=== PATIENT | female | born 1960 | race Caucasian/White ===

== ENCOUNTER → 2016-07-09 | Outpatient (CLI) | payer MEDICAID ==
[~2016-07-09] MED LIST: ALPR-475 PO; ATOR10TA9 PO; AZEL137S4 NAS; BUPR150T6 PO; BUSP15TA PO; CALC1CAP8 PO; CARB100O2 PO; CETI5TAB3 PO; CHOL500014 PO; CYCL-259 PO; DICY20TA3 PO; DIPH25CA61 PO; DOCU50LI24 PO; ESCI20TA PO; FLEXERAL; FLUT10SP INH; HYDR25TA11 PO; HYDR25TA6 PO; LAMO25TA PO; LISI-167 PO; NALO25TA PO; OMEP-110 PO; OMEP40CA6 PO; ONDA4TAB13 PO; OXYC-223 PO; OXYC-302 PO; POLY17PO3 PO; PRAZ1CAP2 PO; PREG50CA PO; PROM25TA10 PO; SUMA100T4 PO; SUMA20SP2 NS; ZOLP-413 PO; [UNRECOGNIZED DRUG - CODE] PO
== END | disposition home or self-care (01) ==
LOC: RAD 13:37
PROVIDERS: ATTEND Neurological Surgery
DX: M41.86 Other forms of scoliosis, lumbar region (principal); S32.018A Other fracture of first lumbar vertebra, initial encounter for closed fracture; M43.23 Fusion of spine, cervicothoracic region; Z98.890 Other specified postprocedural states; X58.XXXA Exposure to other specified factors, initial encounter; Y93.89 Activity, other specified; Y92.89 Other specified places as the place of occurrence of the external cause; Y99.8 Other external cause status
CPT/HCPCS: 72082

== ENCOUNTER → 2016-08-05 | Outpatient (CLI) | payer MEDICAID | END | disposition home or self-care (01) | LOC: CARD 11:30 | PROVIDERS: ATTEND Neurological Surgery | DX: M41.9 Scoliosis, unspecified (principal) | CPT/HCPCS: 94010; 94726; 94729 ==

== ENCOUNTER → 2016-09-11 | Outpatient (CLI) | payer MEDICARE | END | disposition home or self-care (01) | LOC: RAD 10:50 | PROVIDERS: ATTEND Neurological Surgery | DX: M43.13 Spondylolisthesis, cervicothoracic region (principal); M50.33 Other cervical disc degeneration, cervicothoracic region; M41.84 Other forms of scoliosis, thoracic region | CPT/HCPCS: 72040; 72072 ==

== ENCOUNTER → 2016-11-24 | Outpatient (CLI) | payer MEDICARE | END | disposition home or self-care (01) | LOC: RAD 10:47 | PROVIDERS: ATTEND Neurological Surgery | DX: M41.86 Other forms of scoliosis, lumbar region (principal); M43.13 Spondylolisthesis, cervicothoracic region; M51.34 Other intervertebral disc degeneration, thoracic region; M51.36 Other intervertebral disc degeneration, lumbar region; G89.29 Other chronic pain; Z98.1 Arthrodesis status; Z98.890 Other specified postprocedural states | CPT/HCPCS: 72050; 72082 ==

== ENCOUNTER → 2017-05-14 | Outpatient (CLI) | payer MEDICARE ==
[~2017-05-14] MED LIST changes: +CARB100O7 PO; -CHOL500014 PO; +CHOL500045 PO; -OXYC-223 PO; +OXYC-306 PO; -[UNRECOGNIZED DRUG - CODE] PO
== END | disposition home or self-care (01) ==
LOC: RAD 13:35
PROVIDERS: ATTEND Internal Medicine
DX: M86.20 Subacute osteomyelitis, unspecified site (principal)
CPT/HCPCS: 36569; 76937; 77001; C1751

== ENCOUNTER → 2017-05-27 | Outpatient (CLI) | payer MEDICARE | END | disposition home or self-care (01) | LOC: RAD 09:31 | PROVIDERS: ATTEND Nurse Practitioner Family | DX: M40.294 Other kyphosis, thoracic region (principal); Z98.890 Other specified postprocedural states | CPT/HCPCS: 72082 ==

== ENCOUNTER → 2017-06-09 | Outpatient (CLI) | payer MEDICARE | END | disposition home or self-care (01) | LOC: RAD 13:55 | PROVIDERS: ATTEND Neurological Surgery | DX: M48.54XA Collapsed vertebra, not elsewhere classified, thoracic region, initial encounter for fracture (principal); M51.34 Other intervertebral disc degeneration, thoracic region; M48.04 Spinal stenosis, thoracic region; Z98.890 Other specified postprocedural states | CPT/HCPCS: 72128; 72146 ==

== ENCOUNTER 2017-06-30 16:42 | Inpatient (IN) | payer MEDICARE ==
[~2017-06-30] VITALS: Ht 160 cm; Wt 60.6 kg
[2017-06-30] MEDS ORDERED: SODIUM CHLORIDE FLUSH 10ML SYR IVF ONE (17:00)
[2017-06-30] MEDS ORDERED: SODIUM CHLORIDE 0.9% 1,000ML IVBOLUS ONE (17:00)
[2017-06-30] MEDS ORDERED: ESCI20TA PO (17:11)
[2017-06-30] MEDS ORDERED: PRAV40TA2 PO (17:12)
[2017-06-30] MEDS ORDERED: SENN8.6T5 PO (17:14)
[2017-06-30] MEDS ORDERED: FERR325T18 PO (17:15)
[2017-06-30] MEDS ORDERED: HYDR-3245 PO (17:16)
[2017-06-30] MEDS ORDERED: ZOLP-413 PO (17:18)
[2017-06-30] MEDS ORDERED: ASPI-650 PO (17:18)
[2017-06-30] MEDS ORDERED: RIZA10TA5 PO (17:19)
[2017-06-30] MEDS ORDERED: PROM25SU34 RC (17:20)
[2017-06-30] MEDS ORDERED: ALBU0.63 NEB (17:21)
[2017-06-30] MEDS ORDERED: CHOL100011 PO (17:22)
[2017-06-30] MEDS ORDERED: CALC200T3 PO (17:22)
[2017-06-30] MEDS ORDERED: CYAN100072 PO (17:23)
[2017-06-30] MEDS ORDERED: VITA400C9 PO (17:24)
[2017-06-30] MEDS ORDERED: CIPR500T3 PO (17:30)
[2017-06-30 17:39] LABS: BASOPHILS # (AUTO) 0.04 x10^3/uL (0-0.1); BASOPHILS % (AUTO) 0 % (0-1); EOSINOPHILS # (AUTO) 0.34 x10^3/uL (0-0.4); EOSINOPHILS % (AUTO) 3 % (1-7); LYMPHOCYTES # (AUTO) 2.01 x10^3/uL (1-3.4); LYMPHOCYTES % (AUTO) 18 % (22-44); MD NO; MEAN CORPUSCULAR HEMOGLOBIN 27.5 pg (27.0-34.8); MEAN CORPUSCULAR HGB CONC 33.1 g/dL (32.4-35.8); MEAN CORPUSCULAR VOLUME 83.1 fL (80-100); MEAN PLATELET VOLUME 7.6 fL (7.4-10.4); MONOCYTES # (AUTO) 0.52 x10^3/uL (0.2-0.8); MONOCYTES % (AUTO) 5 % (2-9); NEUTROPHILS # (AUTO) 7.99 x10^3/uL (1.8-6.8); NEUTROPHILS % (AUTO) 73 % (42-75); PLATELET COUNT 306 x10^3/uL (130-400); RED BLOOD COUNT 4.23 x10^6/uL (3.82-5.3); RED CELL DISTRIBUTION WIDTH 17.8 % (9.6-15.2)
[2017-06-30 17:50] LABS: ALBUMIN 3.5 g/dL (3.4-5.0); ANION GAP 9 mmol/L (5-15); CALCIUM 8.8 mg/dL (8.5-10.1); CHLORIDE 101 mmol/L (98-107)
[2017-06-30 17:53] LABS: ALANINE AMINOTRANSFERASE 17 U/L (12-78); ALKALINE PHOSPHATASE 115 U/L (45-117); BILIRUBIN,TOTAL 0.7 mg/dL (0.2-1.0); CREATININE 1.52 mg/dL (0.55-1.02); TOTAL PROTEIN 7.9 g/dL (6.4-8.2)
[2017-06-30 18:09] LABS: TROPONIN I < 0.015 ng/mL (0.000-0.045)
[2017-06-30 18:54] LABS: MICROSCOPIC NOT IND
[2017-06-30 19:03] LABS: CULTURE INDICATED? NO
[2017-06-30] MEDS ORDERED: SUMATRIPTAN 100 MG TABLET PO PRN (21:30)
[2017-06-30] MEDS ORDERED: LAMOTRIGINE 25 MG TABLET PO SCH (21:30)
[2017-06-30] MEDS ORDERED: ONDANSETRON 2MG/ML, 2ML IVPush PRN (21:30)
[2017-06-30] MEDS ORDERED: METHOCARBAMOL 500 MG TABLET PO PRN (21:30)
[2017-06-30] MEDS ORDERED: PRAZOSIN 1 MG CAPSULE PO SCH (21:30)
[2017-06-30] MEDS ORDERED: BISACODYL 10 MG SUPP PR PRN (21:30)
[2017-06-30] MEDS ORDERED: POLYETHYLENE GLYCOL 17 GM PACKET PO PRN (21:30)
[2017-06-30 22:15] VITALS: BP 129/85
[2017-06-30] MEDS: HEPARIN 5,000 UNITS/ML, 1ML SQ SCH (22:42)
[2017-06-30] MEDS: PRAVASTATIN 40 MG TABLET PO SCH (22:42)
[2017-06-30] MEDS: OMEPRAZOLE 20 MG CAPSULE.DR PO SCH (22:42)
[2017-06-30] MEDS: PREGABALIN 100 MG CAPSULE PO SCH (22:42)
[2017-06-30] MEDS: SODIUM CHLORIDE 0.9% 1,000 ML IV SCH (22:43)
[2017-06-30 23:08] LABS: FREE T4 (FREE THYROXINE) 1.17 ng/dL (0.76-1.46); THYROID STIMULATING HORMONE 0.549 mIU/L (0.358-3.740)
[2017-07-01] VITALS (8 sets, daily range): BP systolic 72–141; BP diastolic 46–91
[2017-07-01] MEDS: OXYcodone IR 5MG TABLET PO PRN ×2 (00:31→20:50)
[2017-07-01 05:18] LABS: BASOPHILS # (AUTO) 0.02 x10^3/uL (0-0.1); BASOPHILS % (AUTO) 0 % (0-1); EOSINOPHILS # (AUTO) 0.25 x10^3/uL (0-0.4); EOSINOPHILS % (AUTO) 4 % (1-7); LYMPHOCYTES # (AUTO) 2.38 x10^3/uL (1-3.4); LYMPHOCYTES % (AUTO) 38 % (22-44); MD NO; MEAN CORPUSCULAR HEMOGLOBIN 27.6 pg (27.0-34.8); MEAN CORPUSCULAR HGB CONC 33.3 g/dL (32.4-35.8); MEAN CORPUSCULAR VOLUME 82.8 fL (80-100); MEAN PLATELET VOLUME 7.4 fL (7.4-10.4); MONOCYTES # (AUTO) 0.35 x10^3/uL (0.2-0.8); MONOCYTES % (AUTO) 6 % (2-9); NEUTROPHILS # (AUTO) 3.32 x10^3/uL (1.8-6.8); NEUTROPHILS % (AUTO) 53 % (42-75); PLATELET COUNT 277 x10^3/uL (130-400); RED BLOOD COUNT 3.45 x10^6/uL (3.82-5.3)
[2017-07-01 05:27] LABS: ALBUMIN 2.9 g/dL (3.4-5.0); ANION GAP 6 mmol/L (5-15); CALCIUM 8.4 mg/dL (8.5-10.1); CHLORIDE 109 mmol/L (98-107)
[2017-07-01 05:32] LABS: ALANINE AMINOTRANSFERASE 12 U/L (12-78); ALKALINE PHOSPHATASE 94 U/L (45-117); BILIRUBIN,TOTAL 0.6 mg/dL (0.2-1.0); CREATININE 0.83 mg/dL (0.55-1.02); TOTAL PROTEIN 6.8 g/dL (6.4-8.2)
[2017-07-01] MEDS: SODIUM CHLORIDE 0.9% 1,000 ML IV SCH ×2 (08:54→20:50)
[2017-07-01] MEDS: OMEPRAZOLE 20 MG CAPSULE.DR PO SCH ×2 (08:54→20:50)
[2017-07-01] MEDS: HEPARIN 5,000 UNITS/ML, 1ML SQ SCH ×2 (08:54→17:00)
[2017-07-01] MEDS: ASPIRIN 325 MG TABLET EC PO SCH (08:54)
[2017-07-01] MEDS: PREGABALIN 100 MG CAPSULE PO SCH ×2 (08:54→20:50)
[2017-07-01] MEDS: SENNA/DOCUSATE TABLET PO SCH (08:55)
[2017-07-01] MEDS: CHOLECALCIFEROL 1,000 UNIT TABLET PO SCH (08:55)
[2017-07-01] MEDS: TEMPLATE NON-FORMULARY MED. (Escitalopram Oxalate** 20 MG) HOMEMEDPO SCH (08:58)
[2017-07-01] MEDS: CYANOCOBALAMIN 1,000 MCG TABLET PO SCH (09:10)
[2017-07-01] MEDS ORDERED: SODIUM CHLORIDE 0.9%, 500ML IVBOLUS ONE (09:30)
[2017-07-01 13:30] LABS: HCT (SEDRATE) 33.4 % (34.6-47.8)
[2017-07-01] MEDS: PRAVASTATIN 40 MG TABLET PO SCH (20:50)
[2017-07-01] MEDS ORDERED: PRAZOSIN 1 MG CAPSULE PO SCH (21:00)
[2017-07-02] MEDS: HEPARIN 5,000 UNITS/ML, 1ML SQ SCH ×2 (01:19→09:31)
[2017-07-02 03:59] VITALS: BP_SYST 132; BP_SYST 146; BP_DIAS 110; BP_DIAS 88; BP_DIAS 92
[2017-07-02] MEDS: SODIUM CHLORIDE 0.9% 1,000 ML IV SCH (05:00)
[2017-07-02 05:38] LABS: BASOPHILS # (AUTO) 0.02 x10^3/uL (0-0.1); BASOPHILS % (AUTO) 1 % (0-1); EOSINOPHILS # (AUTO) 0.23 x10^3/uL (0-0.4); EOSINOPHILS % (AUTO) 5 % (1-7); LYMPHOCYTES # (AUTO) 2.16 x10^3/uL (1-3.4); LYMPHOCYTES % (AUTO) 50 % (22-44); MD NO; MEAN CORPUSCULAR HEMOGLOBIN 28.1 pg (27.0-34.8); MEAN CORPUSCULAR HGB CONC 33.6 g/dL (32.4-35.8); MEAN CORPUSCULAR VOLUME 83.7 fL (80-100); MEAN PLATELET VOLUME 7.7 fL (7.4-10.4); MONOCYTES # (AUTO) 0.25 x10^3/uL (0.2-0.8); MONOCYTES % (AUTO) 6 % (2-9); NEUTROPHILS # (AUTO) 1.63 x10^3/uL (1.8-6.8); NEUTROPHILS % (AUTO) 38 % (42-75); PLATELET COUNT 327 x10^3/uL (130-400); RED BLOOD COUNT 3.82 x10^6/uL (3.82-5.3); RED CELL DISTRIBUTION WIDTH 17.1 % (9.6-15.2)
[2017-07-02 05:52] LABS: ALANINE AMINOTRANSFERASE 13 U/L (12-78); ALBUMIN 3.1 g/dL (3.4-5.0); ANION GAP 7 mmol/L (5-15); CALCIUM 8.6 mg/dL (8.5-10.1); CHLORIDE 112 mmol/L (98-107); CREATININE 0.56 mg/dL (0.55-1.02)
[2017-07-02 05:54] LABS: ALKALINE PHOSPHATASE 96 U/L (45-117); BILIRUBIN,TOTAL 0.5 mg/dL (0.2-1.0); TOTAL PROTEIN 7.1 g/dL (6.4-8.2)
[2017-07-02 08:49] VITALS: BP 138/87
[2017-07-02] MEDS: TEMPLATE NON-FORMULARY MED. (Escitalopram Oxalate** 20 MG) HOMEMEDPO SCH (09:00)
[2017-07-02] MEDS: OMEPRAZOLE 20 MG CAPSULE.DR PO SCH (09:30)
[2017-07-02] MEDS: PREGABALIN 100 MG CAPSULE PO SCH (09:31)
[2017-07-02] MEDS: CYANOCOBALAMIN 1,000 MCG TABLET PO SCH (09:35)
[2017-07-02] MEDS: ASPIRIN 325 MG TABLET EC PO SCH (09:35)
[2017-07-02] MEDS: SENNA/DOCUSATE TABLET PO SCH (09:35)
[2017-07-02] MEDS: CHOLECALCIFEROL 1,000 UNIT TABLET PO SCH (09:35)
[2017-07-02 12:42] VITALS: BP 139/87
[2017-07-02] MEDS: OXYcodone IR 5MG TABLET PO PRN (12:52)
== END 2017-07-02 14:46 | disposition home or self-care (01) | DRG 91 ==
LOC: ED 20:00 → 3NE 20:16 → 4EST 21:59 → DCLOUNGE 07-02 14:34
PROVIDERS: ADMIT Internal Medicine; ATTEND Internal Medicine
DX: G92 Toxic encephalopathy (principal); N17.0 Acute kidney failure with tubular necrosis; E87.2 Acidosis; E87.1 Hypo-osmolality and hyponatremia; F11.20 Opioid dependence, uncomplicated; M41.9 Scoliosis, unspecified; R47.01 Aphasia; W18.11XA Fall from or off toilet without subsequent striking against object, initial encounter; E78.5 Hyperlipidemia, unspecified; F43.10 Post-traumatic stress disorder, unspecified; F32.9 Major depressive disorder, single episode, unspecified; G43.909 Migraine, unspecified, not intractable, without status migrainosus; K21.9 Gastro-esophageal reflux disease without esophagitis; I10 Essential (primary) hypertension; K58.9 Irritable bowel syndrome, unspecified; I51.89 Other ill-defined heart diseases; Z90.710 Acquired absence of both cervix and uterus; Z96.653 Presence of artificial knee joint, bilateral; Z81.1 Family history of alcohol abuse and dependence; Z82.3 Family history of stroke; Z88.2 Allergy status to sulfonamides; Z88.8 Allergy status to other drugs, medicaments and biological substances; Z88.1 Allergy status to other antibiotic agents; Z91.041 Radiographic dye allergy status; R00.0 Tachycardia, unspecified; T50.905A Adverse effect of unspecified drugs, medicaments and biological substances, initial encounter; Y93.89 Activity, other specified; Y92.89 Other specified places as the place of occurrence of the external cause; Y99.8 Other external cause status; Z98.1 Arthrodesis status; G47.00 Insomnia, unspecified; S39.012A Strain of muscle, fascia and tendon of lower back, initial encounter; S16.1XXA Strain of muscle, fascia and tendon at neck level, initial encounter; S00.03XA Contusion of scalp, initial encounter; G89.29 Other chronic pain
CPT/HCPCS: 36415; 70450; 70551; 72110; 72125; 80053; 80175; 80307; 81003; 82140; 82533; 82607; 83605; 84145; 84439; 84443; 84484; 85025; 85651; 86140; 93005; 96360; 96361; J1644; 92523-GN; J7030; J7040

== ENCOUNTER 2017-09-04 07:52 | Inpatient (IN) | payer MEDICARE ==
[~2017-09-04] VITALS: Ht 162.6 cm; Wt 63.4 kg
[~2017-09-04 07:52] MED LIST changes: +ALBU0.63 NEB; +ALPR1TAB2 PO; +ASPI-650 PO; +BACITRACIN 50,000 UNIT ONE; +BUPIVACAINE/PF 0.5% ONE; +BUSP30TA PO; +CALC200T3 PO; +CHOL100011 PO; +CIPR500T3 PO; +CYAN100072 PO; +EPINEPHRINE 1 MG/ML, 1ML ONE; +FERR325T18 PO; +HYDR-3245 PO; +LAMO150T2 PO; +OXYC15TA PO; +PRAV40TA2 PO; +PREG75CA PO; +PROM25SU34 RC; +RIZA10TA5 PO; +SENN8.6T5 PO; +THROMBIN 20,000 UNIT VIAL TP ONE; +VANCOMYCIN 1,000 MG ONE; +VITA400C9 PO
[2017-09-04] MEDS ORDERED: MIDAZOLAM 1 MG/ML, 2ML ONE (08:24)
[2017-09-04] MEDS ORDERED: FENTANYL PF 250 MCG/5ML ONE (08:24)
[2017-09-04] MEDS ORDERED: ROCURONIUM 10MG/ML,5ML ONE (08:25)
[2017-09-04] MEDS ORDERED: DEXAMETHASONE 4 MG/ML, 1ML ONE ×2 (08:26)
[2017-09-04] MEDS ORDERED: SUCCINYLCHOLINE 20 MG/ML, 10ML ONE (08:26)
[2017-09-04] MEDS ORDERED: CEFAZOLIN 1,000 MG ONE ×4 (08:27→13:08)
[2017-09-04] MEDS ORDERED: PROPOFOL 10 MG/ML, 20ML ONE (08:27)
[2017-09-04] MEDS ORDERED: SODIUM CHLORIDE 0.9% PF 10ML ONE (08:27)
[2017-09-04] MEDS ORDERED: PROPOFOL 50 ML ONE ×3 (08:30→12:57)
[2017-09-04 08:32] VITALS: BP 79/57
[2017-09-04] MEDS ORDERED: LACTATED RINGERS 1,000 ML IV SCH (08:38)
[2017-09-04] MEDS ORDERED: GABAPENTIN 300 MG CAPSULE PO ONE (09:00)
[2017-09-04] MEDS ORDERED: ONDANSETRON ODT 8 MG PO ONE (09:00)
[2017-09-04] MEDS ORDERED: ACETAMINOPHEN 500 MG TABLET PO ONE (09:00)
[2017-09-04] MEDS ORDERED: LACTATED RINGERS 500 ML IVBOLUS ONE (09:00)
[2017-09-04] MEDS ORDERED: GABAPENTIN 300 MG CAPSULE ONE (09:10)
[2017-09-04] MEDS ORDERED: ONDANSETRON ODT 8 MG ONE (09:10)
[2017-09-04] MEDS ORDERED: ACETAMINOPHEN 500 MG TABLET ONE (09:11)
[2017-09-04] MEDS ORDERED: OXYcodone 5 MG/5 ML ORAL.SOL UDC PO PRN (10:00)
[2017-09-04] MEDS ORDERED: PROMETHAZINE 12.5 MG SUPP PR PRN (10:00)
[2017-09-04] MEDS ORDERED: hydrALAzine 20 MG/ML, 1ML IV PRN (10:00)
[2017-09-04] MEDS ORDERED: MORPHINE SULFATE 4 MG/ML, 1ML IVPush PRN (10:00)
[2017-09-04] MEDS ORDERED: MEPERIDINE/PF 25MG/0.5ML IVPush PRN (10:00)
[2017-09-04] MEDS ORDERED: PROMETHAZINE 25 MG/ML, 1ML IV PRN (10:00)
[2017-09-04] MEDS ORDERED: FENTANYL PF 100 MCG/2ML IV PRN (10:00)
[2017-09-04] MEDS ORDERED: LABETALOL 5MG/ML, 20ML IV PRN ×2 (10:00→19:30)
[2017-09-04] MEDS ORDERED: ONDANSETRON ODT 8 MG PO PRN (10:00)
[2017-09-04] MEDS ORDERED: PROMETHAZINE 25 MG SUPP PR PRN (10:00)
[2017-09-04] MEDS ORDERED: HEPARIN 1,000 UNITS/ML, 30ML ONE (10:19)
[2017-09-04] MEDS ORDERED: PHENYLEPHRINE 10 MG/ML ONE (10:32)
[2017-09-04] MEDS ORDERED: TRANEXAMIC ACID 100 MG/ML, 10ML ONE (10:50)
[2017-09-04] MEDS ORDERED: EPHEDRINE 50 MG/ML, 1ML ONE (11:30)
[2017-09-04] MEDS ORDERED: WATER-INJECTION,STERILE 10 ML IV ONE ×2 (11:30→13:07)
[2017-09-04] MEDS: HYDROmorphone 1 MG/ML, 1ML IV PRN ×3 (16:42→16:56)
[2017-09-04] MEDS ORDERED: HYDROmorphone 2 MG/ML, 1ML ONE (16:46)
[2017-09-04] MEDS ORDERED: DIAZEPAM 5 MG/ML, 10ML VIAL IV ONE (17:00)
[2017-09-04] MEDS ORDERED: PROMETHAZINE 25 MG/ML, 1ML ONE (17:07)
[2017-09-04] MEDS ORDERED: KETOROLAC 30 MG/1 ML IVPush ONE (18:00)
[2017-09-04 18:30] VITALS: BP 126/68
[2017-09-04] MEDS ORDERED: ALBUTEROL SULFATE 2.5 MG/3 ML NPPB PRN (19:30)
[2017-09-04] MEDS ORDERED: PROMETHAZINE 25 MG/ML, 1ML IM PRN (19:30)
[2017-09-04] MEDS ORDERED: DIAZEPAM 5 MG/ML, 2ML IV PRN (19:30)
[2017-09-04] MEDS ORDERED: MAGNESIUM HYDROXIDE 8%, 30ML UDC PO PRN (19:30)
[2017-09-04] MEDS ORDERED: BISACODYL 10 MG SUPP PR PRN (19:30)
[2017-09-04] MEDS ORDERED: POLYETHYLENE GLYCOL 17 GM PACKET PO PRN (19:30)
[2017-09-04] MEDS ORDERED: KETOROLAC 30 MG/1 ML IV PRN (19:30)
[2017-09-04] MEDS ORDERED: LORazepam 1MG TABLET PO PRN (19:30)
[2017-09-04] MEDS ORDERED: ONDANSETRON 2MG/ML, 2ML IV PRN (19:30)
[2017-09-04] MEDS ORDERED: CALCIUM CARBONATE 500 MG TAB.CHEW PO PRN (19:30)
[2017-09-04] MEDS ORDERED: PROMETHAZINE 25MG TABLET PO PRN (19:30)
[2017-09-04] MEDS: PRAVASTATIN 40 MG TABLET PO SCH (21:00)
[2017-09-04] MEDS ORDERED: ZOLPIDEM 5MG TABLET PO PRN (21:00)
[2017-09-04] MEDS ORDERED: CEFAZOLIN PMX 1GM/50ML 50 ML IVPB SCH (22:00)
[2017-09-04] MEDS: PREGABALIN 150 MG CAPSULE PO SCH (22:30)
[2017-09-04] MEDS: CEFAZOLIN 1,000 MG in SODIUM CHLORIDE 0.9% 50 ML IVPB SCH (22:30)
[2017-09-04] MEDS: D5%-0.9% NACL+KCL 20MEQ 1,000 ML IV SCH (22:30)
[2017-09-04] MEDS: DICYCLOMINE 20 MG TABLET PO SCH (22:31)
[2017-09-04] MEDS: BUSPIRONE 10 MG TABLET PO SCH (22:31)
[2017-09-04] MEDS: OMEPRAZOLE 20 MG CAPSULE.DR PO SCH (22:31)
[2017-09-05 00:40] VITALS: BP 114/71
[2017-09-05 04:31] VITALS: BP 135/86
[2017-09-05 05:22] LABS: BASOPHILS # (AUTO) 0.02 x10^3/uL (0-0.1); BASOPHILS % (AUTO) 0 % (0-1); EOSINOPHILS % (AUTO) 0 % (1-7); LYMPHOCYTES # (AUTO) 1.06 x10^3/uL (1-3.4); LYMPHOCYTES % (AUTO) 13 % (22-44); MD NO; MEAN CORPUSCULAR HEMOGLOBIN 28.6 pg (27.0-34.8); MEAN CORPUSCULAR HGB CONC 33.3 g/dL (32.4-35.8); MEAN CORPUSCULAR VOLUME 85.9 fL (80-100); MONOCYTES # (AUTO) 0.63 x10^3/uL (0.2-0.8); MONOCYTES % (AUTO) 8 % (2-9); NEUTROPHILS # (AUTO) 6.41 x10^3/uL (1.8-6.8); NEUTROPHILS % (AUTO) 79 % (42-75); PLATELET COUNT 273 x10^3/uL (130-400); RED BLOOD COUNT 3.78 x10^6/uL (3.82-5.3); RED CELL DISTRIBUTION WIDTH 13.9 % (9.6-15.2)
[2017-09-05] MEDS: CEFAZOLIN 1,000 MG in SODIUM CHLORIDE 0.9% 50 ML IVPB SCH (05:40)
[2017-09-05] MEDS: D5%-0.9% NACL+KCL 20MEQ 1,000 ML IV SCH ×2 (05:40→15:08)
[2017-09-05] MEDS: SENNA/DOCUSATE TABLET PO SCH (08:02)
[2017-09-05] MEDS: LAMOTRIGINE 100 MG TABLET PO SCH (08:02)
[2017-09-05] MEDS: OMEPRAZOLE 20 MG CAPSULE.DR PO SCH ×2 (08:03→21:43)
[2017-09-05] MEDS: FERROUS SULFATE 325 MG TABLET PO SCH (08:03)
[2017-09-05] MEDS: PREGABALIN 150 MG CAPSULE PO SCH ×2 (08:03→21:43)
[2017-09-05] MEDS: BUSPIRONE 10 MG TABLET PO SCH ×2 (08:03→21:43)
[2017-09-05] MEDS: DICYCLOMINE 20 MG TABLET PO SCH ×3 (08:03→21:58)
[2017-09-05] MEDS: OXYcodone IR 5MG TABLET PO PRN ×4 (08:03→20:03)
[2017-09-05 09:13] VITALS: BP 125/73
[2017-09-05] MEDS: DIAZEPAM 5 MG TABLET PO PRN ×2 (10:42→17:51)
[2017-09-05] MEDS: CITALOPRAM 20 MG TABLET PO SCH (12:31)
[2017-09-05 15:19] VITALS: BP 128/78
[2017-09-05 20:14] VITALS: BP 106/70
[2017-09-05] MEDS: PRAVASTATIN 40 MG TABLET PO SCH (21:00)
[2017-09-05] MEDS: PRAZOSIN 2 MG CAPSULE PO SCH (21:44)
[2017-09-06] VITALS (8 sets, daily range): BP systolic 83–115; BP diastolic 45–74
[2017-09-06] MEDS: D5%-0.9% NACL+KCL 20MEQ 1,000 ML IV SCH ×3 (01:30→21:30)
[2017-09-06] MEDS: OXYcodone IR 5MG TABLET PO PRN ×2 (01:46→16:27)
[2017-09-06] MEDS: ALPRazolam 1MG TABLET PO PRN (01:47)
[2017-09-06 05:01] LABS: BASOPHILS # (AUTO) 0.02 x10^3/uL (0-0.1); BASOPHILS % (AUTO) 0 % (0-1); EOSINOPHILS # (AUTO) 0.02 x10^3/uL (0-0.4); EOSINOPHILS % (AUTO) 0 % (1-7); LYMPHOCYTES # (AUTO) 1.55 x10^3/uL (1-3.4); LYMPHOCYTES % (AUTO) 20 % (22-44); MD NO; MEAN CORPUSCULAR HEMOGLOBIN 29.1 pg (27.0-34.8); MEAN CORPUSCULAR HGB CONC 33.9 g/dL (32.4-35.8); MEAN PLATELET VOLUME 8.3 fL (7.4-10.4); MONOCYTES # (AUTO) 0.81 x10^3/uL (0.2-0.8); MONOCYTES % (AUTO) 11 % (2-9); NEUTROPHILS # (AUTO) 5.19 x10^3/uL (1.8-6.8); NEUTROPHILS % (AUTO) 68 % (42-75); PLATELET COUNT 227 x10^3/uL (130-400); RED BLOOD COUNT 3.57 x10^6/uL (3.82-5.3); RED CELL DISTRIBUTION WIDTH 14.4 % (9.6-15.2)
[2017-09-06] MEDS: OMEPRAZOLE 20 MG CAPSULE.DR PO SCH ×2 (09:04→20:57)
[2017-09-06] MEDS: FERROUS SULFATE 325 MG TABLET PO SCH (09:04)
[2017-09-06] MEDS: PREGABALIN 150 MG CAPSULE PO SCH ×2 (09:04→22:04)
[2017-09-06] MEDS: LAMOTRIGINE 100 MG TABLET PO SCH (09:04)
[2017-09-06] MEDS: SENNA/DOCUSATE TABLET PO SCH (09:04)
[2017-09-06] MEDS: DICYCLOMINE 20 MG TABLET PO SCH ×3 (09:05→21:00)
[2017-09-06] MEDS: BUSPIRONE 10 MG TABLET PO SCH ×2 (09:05→21:00)
[2017-09-06] MEDS: SODIUM CHLORIDE 0.9% 1,000ML IVBOLUS PRN ×2 (11:30→15:18)
[2017-09-06] MEDS: CITALOPRAM 20 MG TABLET PO SCH (11:34)
[2017-09-06] MEDS: DEXAMETHASONE 4 MG/ML, 1ML IV PRN (13:12)
[2017-09-06] MEDS: PRAZOSIN 2 MG CAPSULE PO SCH (20:57)
[2017-09-06] MEDS: PRAVASTATIN 40 MG TABLET PO SCH (20:57)
[2017-09-07] VITALS (7 sets, daily range): BP systolic 106–133; BP diastolic 65–86
[2017-09-07] MEDS: DEXAMETHASONE 4 MG/ML, 1ML IV PRN (00:44)
[2017-09-07] MEDS: ACETAMINOPHEN 500 MG TABLET PO PRN (02:00)
[2017-09-07] MEDS: OXYcodone IR 5MG TABLET PO PRN ×5 (02:00→17:58)
[2017-09-07] MEDS ORDERED: MIDODRINE MC SCH (05:00)
[2017-09-07] MEDS ORDERED: MIDODRINE 5 MG TABLET PO PRN ×2 (05:00)
[2017-09-07 05:14] LABS: BASOPHILS # (AUTO) 0.01 x10^3/uL (0-0.1); BASOPHILS % (AUTO) 0 % (0-1); EOSINOPHILS % (AUTO) 0 % (1-7); LYMPHOCYTES # (AUTO) 0.54 x10^3/uL (1-3.4); LYMPHOCYTES % (AUTO) 8 % (22-44); MD NO; MEAN CORPUSCULAR HEMOGLOBIN 28.9 pg (27.0-34.8); MEAN CORPUSCULAR VOLUME 85.1 fL (80-100); MEAN PLATELET VOLUME 8.4 fL (7.4-10.4); MONOCYTES # (AUTO) 0.26 x10^3/uL (0.2-0.8); MONOCYTES % (AUTO) 4 % (2-9); NEUTROPHILS # (AUTO) 6.17 x10^3/uL (1.8-6.8); NEUTROPHILS % (AUTO) 89 % (42-75); PLATELET COUNT 206 x10^3/uL (130-400); RED BLOOD COUNT 3.04 x10^6/uL (3.82-5.3); RED CELL DISTRIBUTION WIDTH 14.1 % (9.6-15.2)
[2017-09-07] MEDS: BUSPIRONE 10 MG TABLET PO SCH ×2 (08:19→22:13)
[2017-09-07] MEDS: FERROUS SULFATE 325 MG TABLET PO SCH (08:19)
[2017-09-07] MEDS: OMEPRAZOLE 20 MG CAPSULE.DR PO SCH ×2 (08:20→22:12)
[2017-09-07] MEDS: PREGABALIN 150 MG CAPSULE PO SCH ×2 (08:20→23:24)
[2017-09-07] MEDS: DICYCLOMINE 20 MG TABLET PO SCH ×3 (08:20→23:24)
[2017-09-07] MEDS: SENNA/DOCUSATE TABLET PO SCH (08:21)
[2017-09-07] MEDS: LAMOTRIGINE 100 MG TABLET PO SCH (08:21)
[2017-09-07] MEDS: D5%-0.9% NACL+KCL 20MEQ 1,000 ML IV SCH ×2 (08:22→19:00)
[2017-09-07] MEDS: CITALOPRAM 20 MG TABLET PO SCH (11:39)
[2017-09-07] MEDS: PRAVASTATIN 40 MG TABLET PO SCH (21:00)
[2017-09-07] MEDS: ALPRazolam 1MG TABLET PO PRN (22:11)
[2017-09-07] MEDS: PRAZOSIN 2 MG CAPSULE PO SCH (23:24)
[2017-09-08] MEDS: OXYcodone IR 5MG TABLET PO PRN ×7 (00:05→21:16)
[2017-09-08] MEDS: DIAZEPAM 5 MG TABLET PO PRN (00:10)
[2017-09-08 00:12] VITALS: BP 130/81
[2017-09-08 02:03] VITALS: BP 99/64
[2017-09-08] MEDS: ACETAMINOPHEN 500 MG TABLET PO PRN ×2 (03:16→09:07)
[2017-09-08] MEDS: D5%-0.9% NACL+KCL 20MEQ 1,000 ML IV SCH ×2 (04:46→15:00)
[2017-09-08 05:31] LABS: BASOPHILS # (AUTO) 0.01 x10^3/uL (0-0.1); BASOPHILS % (AUTO) 0 % (0-1); EOSINOPHILS # (AUTO) 0.03 x10^3/uL (0-0.4); EOSINOPHILS % (AUTO) 1 % (1-7); LYMPHOCYTES # (AUTO) 1.47 x10^3/uL (1-3.4); LYMPHOCYTES % (AUTO) 22 % (22-44); MD NO; MEAN CORPUSCULAR HEMOGLOBIN 29.1 pg (27.0-34.8); MEAN CORPUSCULAR HGB CONC 33.5 g/dL (32.4-35.8); MEAN CORPUSCULAR VOLUME 86.9 fL (80-100); MEAN PLATELET VOLUME 8.6 fL (7.4-10.4); MONOCYTES # (AUTO) 0.35 x10^3/uL (0.2-0.8); MONOCYTES % (AUTO) 5 % (2-9); NEUTROPHILS # (AUTO) 4.78 x10^3/uL (1.8-6.8); NEUTROPHILS % (AUTO) 72 % (42-75); PLATELET COUNT 225 x10^3/uL (130-400); RED BLOOD COUNT 2.86 x10^6/uL (3.82-5.3); RED CELL DISTRIBUTION WIDTH 13.9 % (9.6-15.2)
[2017-09-08] MEDS ORDERED: MIDODRINE 5 MG TABLET PO PRN ×2 (07:30→08:00)
[2017-09-08 07:32] VITALS: BP 103/66
[2017-09-08] MEDS: FERROUS SULFATE 325 MG TABLET PO SCH (09:07)
[2017-09-08] MEDS: OMEPRAZOLE 20 MG CAPSULE.DR PO SCH ×2 (09:07→21:16)
[2017-09-08] MEDS: SENNA/DOCUSATE TABLET PO SCH (09:08)
[2017-09-08] MEDS: LAMOTRIGINE 100 MG TABLET PO SCH (09:08)
[2017-09-08] MEDS: DICYCLOMINE 20 MG TABLET PO SCH ×3 (09:09→21:17)
[2017-09-08] MEDS: PREGABALIN 150 MG CAPSULE PO SCH ×2 (09:17→21:17)
[2017-09-08] MEDS: BUSPIRONE 10 MG TABLET PO SCH ×2 (09:18→21:17)
[2017-09-08 12:01] VITALS: BP 134/84
[2017-09-08] MEDS: CITALOPRAM 20 MG TABLET PO SCH (12:12)
[2017-09-08] MEDS ORDERED: ONDANSETRON ODT 4 MG ONE (12:18)
[2017-09-08] MEDS ORDERED: ONDANSETRON ODT 4 MG PO PRN (13:00)
[2017-09-08 13:59] VITALS: BP 108/68
[2017-09-08] MEDS ORDERED: SUMATRIPTAN 100 MG TABLET PO PRN (15:00)
[2017-09-08 19:24] VITALS: BP 99/67
[2017-09-08] MEDS: PRAZOSIN 2 MG CAPSULE PO SCH (21:17)
[2017-09-08] MEDS: PRAVASTATIN 40 MG TABLET PO SCH (21:17)
[2017-09-09] MEDS: D5%-0.9% NACL+KCL 20MEQ 1,000 ML IV SCH ×2 (01:00→11:09)
[2017-09-09] MEDS: OXYcodone IR 5MG TABLET PO PRN ×3 (03:46→11:10)
[2017-09-09] MEDS: DIAZEPAM 5 MG TABLET PO PRN (03:46)
[2017-09-09 03:51] VITALS: BP 121/78
[2017-09-09 05:20] LABS: BASOPHILS # (AUTO) 0.01 x10^3/uL (0-0.1); BASOPHILS % (AUTO) 0 % (0-1); EOSINOPHILS # (AUTO) 0.21 x10^3/uL (0-0.4); EOSINOPHILS % (AUTO) 4 % (1-7); LYMPHOCYTES # (AUTO) 1.97 x10^3/uL (1-3.4); LYMPHOCYTES % (AUTO) 41 % (22-44); MD NO; MEAN CORPUSCULAR HGB CONC 33.9 g/dL (32.4-35.8); MEAN CORPUSCULAR VOLUME 85.6 fL (80-100); MEAN PLATELET VOLUME 7.6 fL (7.4-10.4); MONOCYTES # (AUTO) 0.37 x10^3/uL (0.2-0.8); MONOCYTES % (AUTO) 8 % (2-9); NEUTROPHILS # (AUTO) 2.29 x10^3/uL (1.8-6.8); NEUTROPHILS % (AUTO) 47 % (42-75); PLATELET COUNT 288 x10^3/uL (130-400); RED BLOOD COUNT 3.02 x10^6/uL (3.82-5.3); RED CELL DISTRIBUTION WIDTH 14.1 % (9.6-15.2)
[2017-09-09 06:50] VITALS: BP 132/91
[2017-09-09] MEDS: SENNA/DOCUSATE TABLET PO SCH (08:23)
[2017-09-09] MEDS: OMEPRAZOLE 20 MG CAPSULE.DR PO SCH (08:23)
[2017-09-09] MEDS: PREGABALIN 150 MG CAPSULE PO SCH (08:23)
[2017-09-09] MEDS: FERROUS SULFATE 325 MG TABLET PO SCH (08:23)
[2017-09-09] MEDS: BUSPIRONE 10 MG TABLET PO SCH (08:24)
[2017-09-09] MEDS: DICYCLOMINE 20 MG TABLET PO SCH (08:24)
[2017-09-09] MEDS: LAMOTRIGINE 100 MG TABLET PO SCH (08:24)
[2017-09-09] MEDS ORDERED: OXYC5CAP2 PO (10:20)
[2017-09-09] MEDS ORDERED: CEPH-368 PO (10:21)
[2017-09-09] MEDS ORDERED: METH500T97 PO (10:21)
[2017-09-09] MEDS: CITALOPRAM 20 MG TABLET PO SCH (11:09)
== END 2017-09-09 13:08 | disposition home health service (06) | DRG 460 ==
LOC: ORIP 07:52 → 4NOR 18:29 → DCLOUNGE 09-09 12:52
PROVIDERS: ADMIT Orthopaedic Surgery Orthopaedic Surgery of the Spine; ATTEND Orthopaedic Surgery Orthopaedic Surgery of the Spine
PROC: 0RG7071 Fusion of 2 to 7 Thoracic Vertebral Joints with Autologous Tissue Substitute, Posterior Approach, Posterior Column, Open Approach (ICD-10-PCS; 2017-09-04)
PROC: 0PS43ZZ Reposition Thoracic Vertebra, Percutaneous Approach (ICD-10-PCS; 2017-09-04)
PROC: 07DR3ZZ Extraction of Iliac Bone Marrow, Percutaneous Approach (ICD-10-PCS; 2017-09-04)
PROC: 0PU43JZ Supplement Thoracic Vertebra with Synthetic Substitute, Percutaneous Approach (ICD-10-PCS; 2017-09-04)
PROC: 4A11X4G Monitoring of Peripheral Nervous Electrical Activity, Intraoperative, External Approach (ICD-10-PCS; 2017-09-04)
PROC: 0RP604Z Removal of Internal Fixation Device from Thoracic Vertebral Joint, Open Approach (ICD-10-PCS; principal; 2017-09-04 09:30)
DX: T84.89XA Other specified complication of internal orthopedic prosthetic devices, implants and grafts, initial encounter (principal); M48.04 Spinal stenosis, thoracic region; M48.54XA Collapsed vertebra, not elsewhere classified, thoracic region, initial encounter for fracture; M40.204 Unspecified kyphosis, thoracic region; M43.14 Spondylolisthesis, thoracic region; M54.15 Radiculopathy, thoracolumbar region; Y83.8 Other surgical procedures as the cause of abnormal reaction of the patient, or of later complication, without mention of misadventure at the time of the procedure; K21.9 Gastro-esophageal reflux disease without esophagitis; I10 Essential (primary) hypertension; F41.9 Anxiety disorder, unspecified; F31.9 Bipolar disorder, unspecified; E78.5 Hyperlipidemia, unspecified; Z96.653 Presence of artificial knee joint, bilateral; Z79.899 Other long term (current) drug therapy; Y92.89 Other specified places as the place of occurrence of the external cause
CPT/HCPCS: 36415; 72072; 85025; 86850; 86900; C1713; J0171; J0690; J1100; J1170; J1644; J1885; J2250; J2270; J2550; J2704; J3010; J3360; J3370; J3490; J7120; Q0162; C1760; C1762; C1763; C9362; J0330; J2370; J3480; J7030

== ENCOUNTER → 2017-12-08 | Outpatient (CLI) | payer MEDICARE ==
[~2017-12-08] MED LIST changes: -BACITRACIN 50,000 UNIT ONE; -BUPIVACAINE/PF 0.5% ONE; +CEPH-368 PO; -EPINEPHRINE 1 MG/ML, 1ML ONE; +METH500T97 PO; +OXYC5CAP2 PO; -THROMBIN 20,000 UNIT VIAL TP ONE; -VANCOMYCIN 1,000 MG ONE
== END | disposition home or self-care (01) ==
LOC: CLISVCS 11:25
PROVIDERS: ATTEND Internal Medicine Infectious Disease
DX: R00.1 Bradycardia, unspecified (principal); I45.81 Long QT syndrome; Z88.2 Allergy status to sulfonamides; Z87.891 Personal history of nicotine dependence
CPT/HCPCS: 93005

== ENCOUNTER 2018-07-27 11:14 | Inpatient (IN) | payer MEDICARE ==
[2018-07-27] VITALS (9 sets, daily range): BP systolic 120–178; BP diastolic 71–116
[~2018-07-27] VITALS: Ht 152.4 cm; Wt 60.0 kg
[~2018-07-27 11:14] MED LIST changes: -LAMO25TA PO; +LAMO25TA9 PO; +POLY17PO29 PO; -POLY17PO3 PO
--- NOTE | 2018-07-27 11:43 | NUR ---
[employer]: PT TO ROOM FROM LOBBY VIA WHEELCHAIR
--- NOTE | 2018-07-27 11:51 | NUR ---
PT WC'D TO ROOM 39 W/ C/O FEELING DIZZY/LIGHTHEADED CAUSING PT TO HAVE SUSEQUENT FALLS. PT HIT HER HEAD LAST NOC. PT DENIES LOC. PT STATES SHE IS NOT ON BLOOD THINNERS. PT DENIES HX CARDIC ISSUES. PT RESTING ON GURNEY. NADN. MONITORS APPLIED. WARM BLANKETS PROVIDED. FAMILY AT BEDSIDE.
[2018-07-27] MEDS ORDERED: SODIUM CHLORIDE FLUSH 10ML SYR IVF ONE (12:00)
--- NOTE | 2018-07-27 12:42 | NUR ---
PT RESTING ON GURNEY. NADN. [place].
[2018-07-27 12:49] LABS: BASOPHILS # (AUTO) 0.02 x10^3/uL (0-0.1); BASOPHILS % (AUTO) 1 % (0-1); EOSINOPHILS # (AUTO) 0.16 x10^3/uL (0-0.4); EOSINOPHILS % (AUTO) 4 % (1-7); LYMPHOCYTES # (AUTO) 2.25 x10^3/uL (1-3.4); LYMPHOCYTES % (AUTO) 48 % (22-44); MD NO; MEAN CORPUSCULAR HEMOGLOBIN 29.6 pg (27.0-34.8); MEAN CORPUSCULAR HGB CONC 33.7 g/dL (32.4-35.8); MEAN CORPUSCULAR VOLUME 87.8 fL (80-100); MONOCYTES # (AUTO) 0.32 x10^3/uL (0.2-0.8); MONOCYTES % (AUTO) 7 % (2-9); NEUTROPHILS # (AUTO) 1.91 x10^3/uL (1.8-6.8); NEUTROPHILS % (AUTO) 41 % (42-75); PLATELET COUNT 245 x10^3/uL (130-400); RED BLOOD COUNT 4.71 x10^6/uL (3.82-5.3); RED CELL DISTRIBUTION WIDTH 14.3 % (9.6-15.2)
[2018-07-27 13:02] LABS: ALANINE AMINOTRANSFERASE 16 U/L (12-78); ALBUMIN 4.2 g/dL (3.4-5.0); ANION GAP 6 mmol/L (5-15); CALCIUM 9.3 mg/dL (8.5-10.1); CHLORIDE 108 mmol/L (98-107); CREATININE 0.89 mg/dL (0.55-1.02)
[2018-07-27 13:06] LABS: ALKALINE PHOSPHATASE 95 U/L (45-117); BILIRUBIN,TOTAL 0.4 mg/dL (0.2-1.0); TOTAL PROTEIN 7.8 g/dL (6.4-8.2); TROPONIN I < 0.015 ng/mL (0.000-0.045)
--- NOTE | 2018-07-27 13:54 | NUR ---
PT RESTING ON GURNEY. PT STRAIGHT CATH'D. PT [place] WELL. [facility]A C[facility] PERFORMED.
[2018-07-27 14:25] LABS: MICROSCOPIC NOT IND
[2018-07-27 14:32] LABS: CULTURE INDICATED? NO
--- NOTE | 2018-07-27 15:04 | NUR ---
PT CHART REVIEWED AND PLACED FOR RECHECK.
--- NOTE | 2018-07-27 16:02 | NUR ---
REPORT GIVEN TO CARMEN BRADY RN. ALL QUESTIONS ANSWERED. AWAITING PT TRANSPORT.
--- NOTE | 2018-07-27 16:50 | NUR ---
JUSTINO CRUZ FROM [facility] TO [email or web address].
[2018-07-27] MEDS ORDERED: hydrALAzine 20 MG/ML, 1ML IVPush PRN (17:00)
[2018-07-27] MEDS ORDERED: LABETALOL 5MG/ML, 20ML IVPush PRN (17:00)
[2018-07-27] MEDS ORDERED: CYCLOBENZAPRINE 10 MG TABLET PO PRN (17:00)
[2018-07-27] MEDS ORDERED: MORPHINE SULFATE 4 MG/ML, 1ML IVPush PRN (17:00)
[2018-07-27] MEDS ORDERED: CALCIUM CARBONATE 500 MG TAB.CHEW PO PRN (17:00)
[2018-07-27] MEDS: ESCITALOPRAM 10MG TABLET PO SCH (17:00)
[2018-07-27] MEDS ORDERED: ACETAMINOPHEN 325 MG TABLET PO PRN (17:00)
[2018-07-27] MEDS: LAMOTRIGINE 100 MG TABLET PO SCH (17:00)
--- NOTE | 2018-07-27 17:29 | NUR ---
REPORT GIVEN TO CARMEN RIVER RN. ALL QUESTIONS ANSWERED. AWAITING PT TRANSPORT.
[2018-07-27 17:32] LABS: TROPONIN I < 0.015 ng/mL (0.000-0.045)
[2018-07-27] MEDS: ENOXAPARIN 40 MG/0.4 ML SQ SCH (18:03)
[2018-07-27] MEDS: SODIUM CHLORIDE 0.9% 1,000 ML IV SCH (18:03)
[2018-07-27 18:15] LABS: FOLATE LEVEL > 20.0 ng/mL (3.1-17.5)
[2018-07-27] MEDS: DICYCLOMINE 20 MG TABLET PO SCH (21:04)
[2018-07-27] MEDS: OMEPRAZOLE 20 MG CAPSULE.DR PO SCH (21:04)
[2018-07-27] MEDS: PRAZOSIN 2 MG CAPSULE PO SCH (21:05)
[2018-07-27] MEDS: PRAVASTATIN 40 MG TABLET PO SCH (21:05)
[2018-07-27] MEDS: PREGABALIN 75 MG CAPSULE PO SCH (21:05)
[2018-07-27] MEDS: OXYcodone/APAP 5/325MG TABLET PO PRN (21:09)
[2018-07-27 23:28] LABS: TROPONIN I < 0.015 ng/mL (0.000-0.045)
[2018-07-28 03:54] VITALS: BP 105/71
[2018-07-28 03:55] VITALS: BP_SYST 110; BP_SYST 118; BP_DIAS 78; BP_DIAS 79
[2018-07-28 06:10] LABS: ALANINE AMINOTRANSFERASE 16 U/L (12-78); ALBUMIN 3.8 g/dL (3.4-5.0); ANION GAP 4 mmol/L (5-15); CALCIUM 8.9 mg/dL (8.5-10.1); CHLORIDE 114 mmol/L (98-107)
[2018-07-28 06:13] LABS: ALKALINE PHOSPHATASE 87 U/L (45-117); BILIRUBIN,TOTAL 0.3 mg/dL (0.2-1.0); CREATININE 0.78 mg/dL (0.55-1.02); TOTAL PROTEIN 6.7 g/dL (6.4-8.2)
[2018-07-28 06:15] LABS: MEAN CORPUSCULAR HEMOGLOBIN 29.6 pg (27.0-34.8); MEAN CORPUSCULAR HGB CONC 33.8 g/dL (32.4-35.8); MEAN CORPUSCULAR VOLUME 87.5 fL (80-100); PLATELET COUNT 233 x10^3/uL (130-400); RED BLOOD COUNT 4.52 x10^6/uL (3.82-5.3); RED CELL DISTRIBUTION WIDTH 14.3 % (9.6-15.2)
[2018-07-28 06:41] LABS: MD YES
[2018-07-28 06:49] LABS: <PLATELET ESTIMATE> ADEQUATE; <PLT MORPHOLOGY> NORMAL PLT MORPH; <RBC MORPHOLOGY> NORMAL; BASOS#(MANUAL) 0.03 x10^3/uL (0-0.1); BASOS% (MANUAL) 1 % (0-1); EOS#(MANUAL) 0.13 x10^3/uL (0.0-0.4); EOS% (MANUAL) 4 % (1-7); LYMPH#(MANUAL) 1.62 x10^3/uL (1-3.4); LYMPHS% (MANUAL) 49 % (22-44); MONOS% (MANUAL) 6 % (2-9); REACTIVE LYMPHS % (MANUAL) 9 % (0-0); SEG#(MANUAL) 1.02 x10^3/uL (1.8-6.8); SEGS% (MANUAL) 31 % (42-75)
[2018-07-28 07:42] VITALS: BP 129/82
[2018-07-28] MEDS: FERROUS SULFATE 325 MG TABLET PO SCH (09:01)
[2018-07-28] MEDS: DICYCLOMINE 20 MG TABLET PO SCH ×3 (09:01→21:55)
[2018-07-28] MEDS: LAMOTRIGINE 100 MG TABLET PO SCH (09:01)
[2018-07-28] MEDS: OMEPRAZOLE 20 MG CAPSULE.DR PO SCH ×2 (09:01→21:55)
[2018-07-28] MEDS: PREGABALIN 75 MG CAPSULE PO SCH ×2 (09:01→21:55)
[2018-07-28 13:26] VITALS: BP 135/79
[2018-07-28] MEDS: ESCITALOPRAM 10MG TABLET PO SCH (13:27)
[2018-07-28] MEDS: SODIUM CHLORIDE 0.9% 1,000 ML IV SCH (13:29)
[2018-07-28] MEDS ORDERED: CALCIUM CARBONATE 500 MG TAB.CHEW PO PRN (13:30)
[2018-07-28] MEDS: OXYcodone/APAP 5/325MG TABLET PO PRN ×2 (18:02→21:55)
[2018-07-28] MEDS: ENOXAPARIN 40 MG/0.4 ML SQ SCH (18:03)
[2018-07-28 18:45] VITALS: BP 119/81
[2018-07-28] MEDS: PRAZOSIN 2 MG CAPSULE PO SCH (21:55)
[2018-07-28] MEDS: PRAVASTATIN 40 MG TABLET PO SCH (21:56)
[2018-07-29] MEDS: SODIUM CHLORIDE 0.9% 1,000 ML IV SCH (02:00)
[2018-07-29 03:07] VITALS: BP 119/71
[2018-07-29 06:37] LABS: BASOPHILS # (AUTO) 0.02 x10^3/uL (0-0.1); BASOPHILS % (AUTO) 1 % (0-1); EOSINOPHILS # (AUTO) 0.14 x10^3/uL (0-0.4); EOSINOPHILS % (AUTO) 4 % (1-7); LYMPHOCYTES % (AUTO) 51 % (22-44); MD NO; MEAN CORPUSCULAR HEMOGLOBIN 29.8 pg (27.0-34.8); MEAN CORPUSCULAR HGB CONC 34.1 g/dL (32.4-35.8); MEAN CORPUSCULAR VOLUME 87.3 fL (80-100); MEAN PLATELET VOLUME 7.8 fL (7.4-10.4); MONOCYTES # (AUTO) 0.25 x10^3/uL (0.2-0.8); MONOCYTES % (AUTO) 7 % (2-9); NEUTROPHILS # (AUTO) 1.25 x10^3/uL (1.8-6.8); NEUTROPHILS % (AUTO) 37 % (42-75); PLATELET COUNT 231 x10^3/uL (130-400); RED BLOOD COUNT 4.24 x10^6/uL (3.82-5.3); RED CELL DISTRIBUTION WIDTH 14.4 % (9.6-15.2)
[2018-07-29 07:00] VITALS: BP 121/71
[2018-07-29 08:47] VITALS: BP 159/78
[2018-07-29] MEDS ORDERED: CIPROFLOXACIN 500 MG TABLET PO SCH (09:00)
[2018-07-29] MEDS: LAMOTRIGINE 100 MG TABLET PO SCH (09:40)
[2018-07-29] MEDS: DICYCLOMINE 20 MG TABLET PO SCH (09:40)
[2018-07-29] MEDS: PREGABALIN 75 MG CAPSULE PO SCH (09:40)
[2018-07-29] MEDS: OMEPRAZOLE 20 MG CAPSULE.DR PO SCH (09:40)
[2018-07-29] MEDS: FERROUS SULFATE 325 MG TABLET PO SCH (09:40)
== END 2018-07-29 11:15 | disposition home or self-care (01) | DRG 71 ==
LOC: ED 13:23 → EDIP 15:23 → 4WST 17:42 → 4EST 07-28 06:20 → DCLOUNGE 07-29 11:12
PROVIDERS: ADMIT Hospitalist; ATTEND Hospitalist
PROC: 0T9B70Z Drainage of Bladder with Drainage Device, Via Natural or Artificial Opening (ICD-10-PCS; principal; 2018-07-27)
DX: G93.41 Metabolic encephalopathy (principal); F11.20 Opioid dependence, uncomplicated; R55 Syncope and collapse; Z88.2 Allergy status to sulfonamides; Z88.8 Allergy status to other drugs, medicaments and biological substances; Z91.041 Radiographic dye allergy status; E11.9 Type 2 diabetes mellitus without complications; E78.5 Hyperlipidemia, unspecified; F43.10 Post-traumatic stress disorder, unspecified; G89.29 Other chronic pain; M54.9 Dorsalgia, unspecified; I10 Essential (primary) hypertension; K21.9 Gastro-esophageal reflux disease without esophagitis; K58.9 Irritable bowel syndrome, unspecified; M41.9 Scoliosis, unspecified; W18.39XA Other fall on same level, initial encounter; Y93.89 Activity, other specified; Y92.89 Other specified places as the place of occurrence of the external cause; Y99.8 Other external cause status; Z51.5 Encounter for palliative care; Z80.3 Family history of malignant neoplasm of breast; Z87.891 Personal history of nicotine dependence; Z90.710 Acquired absence of both cervix and uterus; Z96.653 Presence of artificial knee joint, bilateral; Z98.1 Arthrodesis status; Z98.82 Breast implant status; T50.995A Adverse effect of other drugs, medicaments and biological substances, initial encounter; T39.95XA Adverse effect of unspecified nonopioid analgesic, antipyretic and antirheumatic, initial encounter
CPT/HCPCS: 36415; 70450; 71045; 72125; 72128; 72131; 80053; 81003; 82607; 82746; 84443; 84484; 85025; 86592; 93005; 93306; 93880; 99285; G0378; J1650; J7030

== ENCOUNTER 2018-11-08 09:43 | Outpatient (CLI) | payer MEDICARE ==
[~2018-11-08 09:43] MED LIST changes: -ALPR-475 PO; +ALPR0.5T7 PO; +HYDR-826 PO; -HYDR25TA11 PO; +VITA-73 PO; -VITA400C9 PO
== END 2018-11-08 23:59 | disposition home or self-care (01) ==
LOC: CFH 09:43
PROVIDERS: ATTEND Nurse Practitioner Family
DX: N64.4 Mastodynia (principal); Z98.82 Breast implant status
CPT/HCPCS: 77066; G0279

== ENCOUNTER → 2019-10-05 | Outpatient (CLI) | payer MEDICARE ==
[~2019-10-05] MED LIST changes: -LAMO150T2 PO; +LAMO150T4 PO; +OMEP40CA42 PO; -OMEP40CA6 PO; -OXYC15TA PO; +OXYC15TA3 PO
== END | disposition home or self-care (01) ==
LOC: STAR 10:27
PROVIDERS: ATTEND Internal Medicine Infectious Disease
DX: Z01.818 Encounter for other preprocedural examination (principal); I45.81 Long QT syndrome
CPT/HCPCS: 93005

== ENCOUNTER 2019-11-17 13:32 | Outpatient (CLI) | payer MEDICARE ==
[2019-11-17] MEDS ORDERED: OXYC5CAP2 PO (14:10)
[2019-11-17] MEDS ORDERED: ALPR1TAB6 PO (14:10)
[2019-11-17] MEDS ORDERED: CLOT15CR6 TP (14:10)
[2019-11-17] MEDS ORDERED: ONDA4TAB13 SL (14:10)
[2019-11-17] MEDS ORDERED: RIZA10TA34 PEG (14:10)
[2019-11-17] MEDS ORDERED: CALC-534 PO (14:10)
[2019-11-17] MEDS ORDERED: ACET325T14 PO (14:10)
[2019-11-17] MEDS ORDERED: CIPR500T3 PO (14:10)
[2019-11-17] MEDS ORDERED: METH750T2 PO (14:10)
[2019-11-17] MEDS ORDERED: DULO30CA2 PO (14:10)
[2019-11-17] MEDS ORDERED: MULT-516 PO (14:10)
[2019-11-17] MEDS ORDERED: NALD0.2T PO (14:10)
[2019-11-17] MEDS ORDERED: AZEL137S4 NAS (14:10)
[2019-11-17] MEDS ORDERED: ESCI20TA10 PO (14:10)
[2019-11-17] MEDS ORDERED: TRAZ-175 PO (14:10)
== END 2019-11-17 23:59 | disposition home or self-care (01) ==
LOC: STAR 13:32
PROVIDERS: ATTEND Obstetrics & Gynecology Female Pelvic Medicine and Reconstructive Surgery
DX: Z01.818 Encounter for other preprocedural examination (principal); Z11.59 Encounter for screening for other viral diseases; N39.3 Stress incontinence (female) (male); N81.10 Cystocele, unspecified; N81.6 Rectocele
CPT/HCPCS: 36415; 87635

== ENCOUNTER 2019-11-21 10:16 | Day surgery (SDC) | payer MEDICARE ==
[~2019-11-21] VITALS: Ht 162.6 cm; Wt 62.8 kg
[~2019-11-21 10:16] MED LIST changes: +ACET325T14 PO; +ALPR1TAB6 PO; +BUPIVACAINE/PF 0.25% ONE; +CALC-534 PO; +CLOT15CR6 TP; +DULO30CA2 PO; +EPINEPHRINE 1 MG/ML, 1ML ONE; +ESCI20TA10 PO; +FLUORESCEIN SODIUM 500 MG/5 ML ONE; +GENTAMICIN 80 MG/2 ML ONE; +METH750T2 PO; +MULT-516 PO; +NALD0.2T PO; +ONDA4TAB13 SL; +RIZA10TA34 PEG; +TRAZ-175 PO; +VANCOMYCIN 500 MG ONE
[2019-11-21] MEDS ORDERED: LACTATED RINGERS 1,000 ML IV SCH (10:47)
[2019-11-21 10:53] VITALS: BP 107/73
[2019-11-21] MEDS ORDERED: CHLORHEXIDINE 15 ML UDC MM ONE (11:00)
[2019-11-21] MEDS ORDERED: DULO20CA45 PO (11:33)
[2019-11-21] MEDS ORDERED: CALC-451 PO (11:33)
[2019-11-21] MEDS ORDERED: ESCI20TA PO (11:33)
[2019-11-21] MEDS ORDERED: CIPR500T3 PO (11:33)
[2019-11-21] MEDS ORDERED: LAMO100T63 PO (11:33)
[2019-11-21] MEDS ORDERED: ESCI20TA10 PO (11:33)
[2019-11-21] MEDS ORDERED: FERR324T5 PO (11:33)
[2019-11-21] MEDS ORDERED: ALPR1TAB6 PO (11:33)
[2019-11-21] MEDS ORDERED: METH750T2 PO (11:33)
[2019-11-21] MEDS ORDERED: DICY20TA3 PO (11:33)
[2019-11-21] MEDS ORDERED: AZEL137S4 NAS (11:33)
[2019-11-21] MEDS ORDERED: CLOT15CR26 TP (11:33)
[2019-11-21] MEDS ORDERED: DEXAMETHASONE 4 MG/ML, 1ML ONE (12:39)
[2019-11-21] MEDS ORDERED: MIDAZOLAM 1 MG/ML, 2ML ONE (12:39)
[2019-11-21] MEDS ORDERED: ROCURONIUM 10MG/ML,5ML ONE (12:39)
[2019-11-21] MEDS ORDERED: LIDOCAINE-MPF 2% ,5ML ONE (12:39)
[2019-11-21] MEDS ORDERED: FENTANYL PF 100 MCG/2ML ONE (12:39)
[2019-11-21] MEDS ORDERED: PROPOFOL 10 MG/ML, 20ML ONE (12:39)
[2019-11-21] MEDS ORDERED: GLYCOPYRROLATE 0.2MG/1ML, 5ML ONE (12:39)
[2019-11-21] MEDS ORDERED: EPHEDRINE 50 MG/ML, 1ML IVPush PRN (13:00)
[2019-11-21] MEDS ORDERED: LORazepam 2 MG/ML, 1ML IVPush PRN (13:00)
[2019-11-21] MEDS ORDERED: HALOPERIDOL 5 MG/ML IV PRN (13:00)
[2019-11-21] MEDS ORDERED: DIPHENHYDRAMINE 50 MG/ML, 1ML IVPush PRN (13:00)
[2019-11-21] MEDS ORDERED: MEPERIDINE/PF 25MG/0.5ML IVPush PRN (13:00)
[2019-11-21] MEDS ORDERED: METOCLOPRAMIDE 5 MG/ML, 2ML IVPush PRN (13:00)
[2019-11-21] MEDS ORDERED: hydrALAzine 20 MG/ML, 1ML IV PRN (13:00)
[2019-11-21] MEDS ORDERED: ACETAMINOPHEN 325 MG TABLET PO PRN (13:00)
[2019-11-21] MEDS ORDERED: LABETALOL 5MG/ML, 20ML IV PRN (13:00)
[2019-11-21] MEDS ORDERED: ONDANSETRON 2MG/ML, 2ML IVPush PRN (13:00)
[2019-11-21] MEDS ORDERED: METHOCARBAMOL 1,000 MG in DEXTROSE 5% 100 ML IV PRN (13:00)
[2019-11-21] MEDS ORDERED: MIDAZOLAM 1 MG/ML, 2ML IV PRN (13:00)
[2019-11-21] MEDS ORDERED: ALBUTEROL/IPRATROPIUM 2.5MG/0.5MG, 3 ML NPPB PRN (13:00)
[2019-11-21] MEDS ORDERED: DIAZEPAM 5 MG/ML, 2ML IVPush PRN (13:00)
[2019-11-21] MEDS ORDERED: EPHEDRINE 50 MG/ML, 1ML IM PRN (13:00)
[2019-11-21] MEDS ORDERED: CEFAZOLIN 1,000 MG ONE (13:45)
[2019-11-21] MEDS ORDERED: SCOPOLAMINE 1MG PATCH TD SCH (14:00)
[2019-11-21] MEDS ORDERED: ONDANSETRON 2MG/ML, 2ML ONE (14:44)
[2019-11-21] MEDS ORDERED: HYDROmorphone 1 MG/ML, 1ML INJ ONE ×2 (14:52→15:16)
[2019-11-21] MEDS: HYDROmorphone 1 MG/ML, 1ML INJ IVPush PRN ×4 (14:55→15:30)
== END 2019-11-21 18:10 | disposition home or self-care (01) ==
LOC: OUT 10:16
PROVIDERS: ATTEND Obstetrics & Gynecology Female Pelvic Medicine and Reconstructive Surgery
DX: N81.89 Other female genital prolapse (principal); N39.46 Mixed incontinence; R33.8 Other retention of urine; N81.11 Cystocele, midline; N81.5 Vaginal enterocele; N81.6 Rectocele; R10.2 Pelvic and perineal pain; I25.10 Atherosclerotic heart disease of native coronary artery without angina pectoris; I10 Essential (primary) hypertension; G43.909 Migraine, unspecified, not intractable, without status migrainosus; M19.90 Unspecified osteoarthritis, unspecified site; F41.9 Anxiety disorder, unspecified; Z79.891 Long term (current) use of opiate analgesic; Z79.899 Other long term (current) drug therapy; Z88.2 Allergy status to sulfonamides; Z88.5 Allergy status to narcotic agent; Z88.8 Allergy status to other drugs, medicaments and biological substances; Z90.710 Acquired absence of both cervix and uterus; Z96.659 Presence of unspecified artificial knee joint; Z98.890 Other specified postprocedural states
CPT/HCPCS: 57265; 57282; 57288; C1771; J0171; J0690; J1100; J1170; J1580; J2250; J2405; J2704; J2800; J3370; J3490; J7120; J3010

== ENCOUNTER 2020-04-26 09:02 | Emergency (ER) | payer MEDICARE ==
[~2020-04-26] VITALS: Ht 160 cm; Wt 63.9 kg
[~2020-04-26 09:02] MED LIST changes: -BUPIVACAINE/PF 0.25% ONE; -BUPR150T6 PO; +BUPR150T7 PO; +CALC-451 PO; +CLOT15CR26 TP; +DULO20CA45 PO; -EPINEPHRINE 1 MG/ML, 1ML ONE; -ESCI20TA PO; +ESCI20TA5 PO; +FERR324T5 PO; -FLUORESCEIN SODIUM 500 MG/5 ML ONE; -GENTAMICIN 80 MG/2 ML ONE; +LAMO100T63 PO; -NALO25TA PO; +NALO25TA4 PO; -VANCOMYCIN 500 MG ONE
--- NOTE | 2020-04-26 09:19 | NUR ---
Triage note: EKG done in triage
[2020-04-26] MEDS ORDERED: SODIUM CHLORIDE FLUSH 10ML SYR IVF ONE (10:00)
[2020-04-26] MEDS ORDERED: LORazepam 2 MG/ML, 1ML IVPush ONE (10:00)
[2020-04-26] MEDS ORDERED: SODIUM CHLORIDE 0.9% 1,000 ML IV ONE (10:00)
--- NOTE | 2020-04-26 10:13 | NUR ---
PT TO BR IN WC. UNABLE TO PROVIDE UA AT THIS TIME.
[2020-04-26] MEDS ORDERED: LORazepam 2 MG/ML, 1ML ONE (10:20)
[2020-04-26 10:31] LABS: BASOPHILS % (AUTO) 0 % (0-1); EOSINOPHILS % (AUTO) 4 % (1-7); LYMPHOCYTES % (AUTO) 29 % (22-44); MEAN CORPUSCULAR HEMOGLOBIN 30.4 pg (27.0-34.8); MEAN CORPUSCULAR HGB CONC 34.3 g/dL (32.4-35.8); MONOCYTES % (AUTO) 7 % (2-9); NEUTROPHILS % (AUTO) 60 % (42-75); PLATELET COUNT 320 x10^3/uL (130-400); RED BLOOD COUNT 4.74 x10^6/uL (3.82-5.3); RED CELL DISTRIBUTION WIDTH 13.6 % (9.6-15.2)
[2020-04-26 10:32] LABS: MD NO
[2020-04-26 10:33] LABS: HCT (SEDRATE) 42.1 % (34.6-47.8)
[2020-04-26 10:36] LABS: ANION GAP 6 mmol/L (5-15); CALCIUM 9.2 mg/dL (8.5-10.1); CHLORIDE 108 mmol/L (98-107)
[2020-04-26 10:43] LABS: ALANINE AMINOTRANSFERASE 22 U/L (12-78); ALKALINE PHOSPHATASE 102 U/L (45-117); BILIRUBIN,TOTAL 0.5 mg/dL (0.2-1.0); CREATININE 0.87 mg/dL (0.55-1.02); TOTAL PROTEIN 7.7 g/dL (6.4-8.2)
[2020-04-26 11:42] LABS: MICROSCOPIC NOT IND
[2020-04-26 11:56] LABS: AMPHETAMINE SCREEN, URINE Negative (Negative); BARBITURATE SCREEN, URINE Negative (Negative); BENZODIAZEPINE SCREEN, URINE Negative (Negative); CANNABINOID SCREEN, URINE Negative (Negative); COCAINE SCREEN, URINE Negative (Negative); METHADONE SCREEN, URINE Negative (Negative); OPIATE SCREEN, URINE Positive (Negative)
[2020-04-26 12:29] VITALS: BP 138/85
--- NOTE | 2020-04-26 12:53 | NUR ---
Patient given discharge instructions and they have confirmed that they understand the instructions. Patient in stable condition, wheeled out of ED by spouse to private vehicle.
== END 2020-04-26 12:54 | disposition home or self-care (01) ==
LOC: ED 12:15
DX: E86.0 Dehydration (principal); F41.1 Generalized anxiety disorder; R41.0 Disorientation, unspecified; R53.1 Weakness; E11.9 Type 2 diabetes mellitus without complications; K21.9 Gastro-esophageal reflux disease without esophagitis; I10 Essential (primary) hypertension; E87.1 Hypo-osmolality and hyponatremia; E78.5 Hyperlipidemia, unspecified; Z90.710 Acquired absence of both cervix and uterus
CPT/HCPCS: 36415; 80053; 80307; 81003; 83735; 85025; 85651; 86140; 93005; 96361; 96374; 99284; J2060; J7030

== ENCOUNTER → 2020-07-02 | Outpatient (CLI) | payer MEDICARE ==
[~2020-07-02] MED LIST changes: +ALPR-585 PO; -ALPR1TAB6 PO; +ASPI-1026 PO; -ASPI-650 PO; +BUPR150T22 PO; -BUPR150T7 PO; -CIPR500T3 PO; +CIPR500T4 PO; -CYCL-259 PO; +CYCL10TA2 PO; -DICY20TA3 PO; +DICY20TA4 PO; -ESCI20TA5 PO; +ESCI20TA8 PO; -HYDR-3245 PO; +HYDR1TAB53 PO; +METH-640 PO; -METH750T2 PO; -NALD0.2T PO; +NALD0.2T3 PO; -OXYC-302 PO; -OXYC-306 PO; +OXYC1TAB14 PO; +OXYC1TAB17 PO; -POLY17PO29 PO; +POLY17PO50 PO; -RIZA10TA34 PEG; +RIZA10TA34 PO; +VITA-66 PO; -VITA-73 PO
[2020-07-02 13:21] LABS: BASOPHILS % (AUTO) 1 % (0-1); EOSINOPHILS % (AUTO) 3 % (1-7); LYMPHOCYTES % (AUTO) 44 % (22-44); MEAN CORPUSCULAR HEMOGLOBIN 30.2 pg (27.0-34.8); MEAN CORPUSCULAR HGB CONC 33.7 g/dL (32.4-35.8); MEAN PLATELET VOLUME 8.3 fL (7.4-10.4); MONOCYTES % (AUTO) 6 % (2-9); NEUTROPHILS % (AUTO) 47 % (42-75); PLATELET COUNT 295 x10^3/uL (130-400); RED BLOOD COUNT 4.97 x10^6/uL (3.82-5.3); RED CELL DISTRIBUTION WIDTH 13.9 % (9.6-15.2)
[2020-07-02 13:25] LABS: HCT (SEDRATE) 44.4 % (34.6-47.8)
[2020-07-02 13:29] LABS: MD NO
[2020-07-02 13:30] LABS: ALANINE AMINOTRANSFERASE 20 U/L (12-78); ALBUMIN 4.5 g/dL (3.4-5.0); ANION GAP 4 mmol/L (5-15); CALCIUM 9.1 mg/dL (8.5-10.1); CHLORIDE 105 mmol/L (98-107); CREATININE 0.77 mg/dL (0.55-1.02); INTERNATIONAL NORMALIZED RATIO 0.93 (0.93-1.1)
[2020-07-02 13:32] LABS: ALKALINE PHOSPHATASE 86 U/L (45-117); BILIRUBIN,TOTAL 0.4 mg/dL (0.2-1.0); TOTAL PROTEIN 8.2 g/dL (6.4-8.2)
== END | disposition home or self-care (01) ==
LOC: STAR 12:00
PROVIDERS: ATTEND Orthopaedic Surgery Orthopaedic Surgery of the Spine
DX: Z01.818 Encounter for other preprocedural examination (principal); M54.6 Pain in thoracic spine; Z20.822 Contact with and (suspected) exposure to COVID-19
CPT/HCPCS: 36415; 71046; 80053; 83036; 85025; 85610; 85651; 85730; 93005; U0003

== ENCOUNTER 2020-09-06 16:25 | Emergency (ER) | payer MEDICARE ==
[~2020-09-06] VITALS: Ht 154.9 cm; Wt 60.3 kg
--- NOTE | 2020-09-06 16:50 | NUR ---
PT TO ROOM FROM TRIAGE. PT SITTING ON GURNEY, UNABLE TO CHANGE INTO GOWN D/T BACK BRACE. PT STATES SHE FELL OFF STEP STOOL AT HOME TODAY. C/O BILATERAL BACK PAIN FROM NECK TO TAILBONE. NADN. CALL LIGHT WITHIN REACH
--- NOTE | 2020-09-06 17:24 | NUR ---
PT TO XRAY
[2020-09-06] MEDS ORDERED: HYDROmorphone 1 MG/ML, 1ML INJ IM ONE ×2 (17:30→18:30)
[2020-09-06] MEDS ORDERED: LIDODERM 5% PATCH TD ONE ×2 (17:30→17:45)
[2020-09-06] MEDS ORDERED: METHOCARBAMOL 750 MG TABLET PO ONE (17:30)
[2020-09-06] MEDS ORDERED: HYDROmorphone 1 MG/ML, 1ML INJ ONE ×2 (17:45→18:36)
[2020-09-06] MEDS ORDERED: METHOCARBAMOL 500 MG TABLET ONE (17:45)
--- NOTE | 2020-09-06 18:08 | NUR ---
PT BACK FROM [facility]. PT SITTING ON RJ ALVAREZ. CLAY. AT BS. MEDICATED PER EMAR
--- NOTE | 2020-09-06 18:28 | NUR ---
PA AT BS
[2020-09-06] MEDS ORDERED: IBUPROFEN 200 MG TABLET PO ONE (18:30)
[2020-09-06] MEDS ORDERED: IBUPROFEN 600 MG TABLET ONE (18:36)
--- NOTE | 2020-09-06 18:42 | NUR ---
PT SITTING ON [place], AT BS. CALL LIGHT WITHIN REACH. MEDICATED PER EMAR
--- NOTE | 2020-09-06 18:52 | NUR ---
REPORT TO CHIN PHELPS
--- NOTE | 2020-09-06 19:16 | NUR ---
pt laying in bed, significant other at bedside, pt states she is still in pain but has many back surgeries in the past, pt already has a lidocaine patch in place, pt complaining of pain in her upper back, all needs in reach, call light in reach
[2020-09-06 19:36] VITALS: BP 123/90
== END 2020-09-06 19:38 | disposition home or self-care (01) ==
LOC: ED 19:25
DX: S39.012A Strain of muscle, fascia and tendon of lower back, initial encounter (principal); F17.200 Nicotine dependence, unspecified, uncomplicated; E11.9 Type 2 diabetes mellitus without complications; K21.9 Gastro-esophageal reflux disease without esophagitis; E78.5 Hyperlipidemia, unspecified; I10 Essential (primary) hypertension; G89.29 Other chronic pain; Z90.710 Acquired absence of both cervix and uterus; W11.XXXA Fall on and from ladder, initial encounter; Y92.89 Other specified places as the place of occurrence of the external cause; Y99.8 Other external cause status; Y93.89 Activity, other specified
CPT/HCPCS: 72110; 96372; 99284; J1170